=== PATIENT | female | born 1995 | race Caucasian/White ===

== ENCOUNTER 2016-08-13 19:53 | Emergency (ER) | payer MEDICAID ==
[~2016-08-13] VITALS: Ht 165.1 cm; Wt 77.0 kg
[2016-08-13 19:55] VITALS: BP 137/61; PULSE 73; RESP 16; TEMP 98.5; O2SAT 99
[2016-08-13] MEDS ORDERED: AMOX400S3 PO (20:02)
--- NOTE | 2016-08-13 20:14 | PD ---
Physical Exam Time Seen by Provider: 20:09 Narrative 20yo F c/o not being able to hear out of L ear x2days. Reports cold symptoms x 2 weeks. Also c/o L sided stabbing chest pain w/ coughing or deep breathing. Reports SOB. Patient seen in triage. VS reviewed. Awaiting bed placement. Data Data Last Documented VS Vital Signs Date Time Temp Pulse Resp B/P Pulse Ox O2 Delivery O2 Flow Rate FiO2 08/13/16 19:55 98.5 73 16 137/61 99 Room Air MDM Supervised Visit with GRAHAM: No Scripts No Active Prescriptions or Reported Meds Betty Mejia August 13, 2016 20:14
[2016-08-13] MEDS ORDERED: PRED-503 PO (20:57)
--- NOTE | 2016-08-13 20:57 | PD ---
HPI Chief Complaint: Cold / Flu Symptoms Time Seen by Provider: 20:53 Travel History International Travel<30 days: No Contact w/Intl Traveler<30days: No Traveled to known affect area: No History of Present Illness HPI 20-year-old white female presents to emergency Department with complaints of decreased hearing in her left ear and cough. She states that she's been sick now for nearly a week. Initially started off with runny nose, cough and congestion. She could not hear out of her right ear. She states that after about 3 or 4 days she could hear out of her right ear but then she could not hear out of her left ear. She says some pleuritic chest wall pain. In general malaise. She had some subjective fever initially but that did resolve. No nausea vomiting. No abdominal pain. No dysuria or frequency. Symptoms are moderate. She does not use Q-tips. PFSH Past Medical History Medical History: Denies Significant Hx Hx Anticoagulant Therapy: No Cardiovascular Problems: No Chemotherapy: No Cerebrovascular Accident: No Developmental Delay: No Diabetes: No Diminished Hearing: No Respiratory: No Immunizations Current: Yes Tetanus Vaccination: Unknown Influenza Vaccination: No ?: Not LMP: NOW : 1 Para: 1 Miscarriage: 0 : 0 Past Surgical History Surgical History: No Previous Surgery Social History Alcohol Use: No Tobacco Use: No Substance Use: No Allergies-Medications (Allergen,Severity, Reaction): Coded Allergies: No Known Allergies (Unverified , 08/13/16) Reported Meds & Prescriptions Reported Meds & Active Scripts Active No Active Prescriptions or Reported Medications Review of Systems Except as stated in HPI: all other systems reviewed are Neg Physical Exam Narrative GENERAL: Well-developed, well-nourished in no acute distress. Nontoxic appearing. HEAD: Normocephalic, atraumatic. EYES: Pupils equal round and reactive. Extraocular motions intact. No scleral icterus. No injection or drainage. ENT: TMs clear without erythema. The left TM is distended but clear. Poor Valsalva. The external auditory canals clear. Nose: clear . Posterior pharynx is pink and moist. No tonsillar edema or exudate. Uvula midline. Airway patent. NECK: Trachea midline.Supple, nontender, moves head freely. No central bony tenderness or spasm. CARDIOVASCULAR: Regular rate and rhythm without murmurs, gallops, or rubs. RESPIRATORY: Clear to auscultation. Breath sounds equal bilaterally. No wheezes , rales, or rhonchi. GASTROINTESTINAL: Abdomen soft, non-tender, nondistended. No hepato-splenomegaly , or palpable masses. No guarding. EXTREMITIES: No clubbing, cyanosis, or edema. No joint tenderness, effusion, or edema noted. BACK: Nontender without deformity or crepitance. No flank tenderness. Data Data Last Documented VS Vital Signs Date Time Temp Pulse Resp B/P Pulse Ox O2 Delivery O2 Flow Rate FiO2 08/13/16 20:10 16 08/13/16 19:55 98.5 73 137/61 99 Room Air Orders Electrocardiogram (08/13/16 20:18) MDM Medical Decision Making Medical Screen Exam Complete: Yes Emergency Medical Condition: Yes Medical Record Reviewed: Yes Interpretation(s) EKG: Sinus arrhythmia but no abnormal ST-T wave changes. Normal rate. Normal interval. Differential Diagnosis MDM: High Differential diagnoses: Pneumonia, bronchitis, URI, asthma, RAD, otitis media, serous otitis media Narrative Course EKG reveals sinus arrhythmia but no acute ST-T wave changes. Diagnosis Primary Impression: Eustachian tube dysfunction Qualified Code: H69.82 - Eustachian tube dysfunction, left Additional Impressions: Serous otitis media Qualified Code: H65.92 - Left serous otitis media, unspecified chronicity URI (upper respiratory infection) Qualified Code: J06.9 - Viral upper respiratory tract infection Patient Instructions: General Instructions Additional Instructions: Rest. Increase fluids. Chew gum. Sudafed for 2 weeks. Prednisone. Follow-up with a medical doctor in one week. Return to the ER for emergencies. Med/Other Pt SpecificInfo: Prescription(s) given Scripts No Active Prescriptions or Reported Meds Disposition: 01 DISCHARGE HOME Condition: Stable Ross Torres August 13, 2016 20:57
--- NOTE | 2016-08-14 07:27 | EKG ---
Date Performed: 08/13/2016 Time Performed: 20:18:15 PTAGE: 20 years EKG: Sinus rhythm WITH MARKED SINUS ARRHYTHMIA NO PREVIOUS TRACING DOCTOR: Armen Rousseau Interpretating Date/Time 08/14/2016 07:26:11
== END 2016-08-13 21:46 | disposition home or self-care (01) ==
LOC: NEPK 19:53
DX: H69.82 Other specified disorders of Eustachian tube, left ear (principal); H65.92 Unspecified nonsuppurative otitis media, left ear; J06.9 Acute upper respiratory infection, unspecified
CPT/HCPCS: 93005; 99283

== ENCOUNTER 2017-01-07 06:35 | Emergency (ER) | payer MEDICAID ==
[~2017-01-07] VITALS: Ht 165.1 cm; Wt 84.0 kg
[~2017-01-07 06:35] MED LIST: PRED-503 PO
[2017-01-07 06:38] VITALS: BP 124/73; PULSE 84; RESP 16; TEMP 98.1; O2SAT 100
[2017-01-07] MEDS ORDERED: SODIUM CHLOR 0.9% 1000 ML INJ 1,000 ML IV SCH (07:15)
[2017-01-07] MEDS ORDERED: KETOROLAC TROMETHAMINE 30 MG/ML (IVP) VIAL IVP ONE (07:15)
[2017-01-07] MEDS ORDERED: SODIUM CHLORIDE 0.9% FLUSH 10 ML FLUSH IV FLUSH PRN (07:15)
--- NOTE | 2017-01-07 07:22 | PD ---
HPI Chief Complaint: Pain: Acute or Chronic Time Seen by Provider: 07:15 Travel History International Travel<30 days: No Contact w/Intl Traveler<30days: No Traveled to known affect area: No History of Present Illness HPI 21-year-old female patient presents to the ER today for several days history of left leg. She currently measures at a 7 out of 10, describes as sharp and waxing and waning. She states that it worsens with movements. She denies any nausea, vomiting, fevers, urinary symptoms, or any other symptoms. She denies any previous issues with this. She does not know any injuries. Modifying Factors: Worse with movement Associated Signs & Symptoms: Left flank pains Risk Factors: None PFSH Past Medical History Medical History: Denies Significant Hx Hx Anticoagulant Therapy: No Cardiovascular Problems: No Chemotherapy: No Cerebrovascular Accident: No Developmental Delay: No Diabetes: No Diminished Hearing: No Respiratory: No Immunizations Current: Yes ?: Not LMP: 01/07/17 : 1 Para: 1 Miscarriage: 0 : 0 Past Surgical History Surgical History: No Previous Surgery Social History Alcohol Use: No Tobacco Use: No Substance Use: No Allergies-Medications (Allergen,Severity, Reaction): Coded Allergies: No Known Allergies (Unverified , 01/07/17) Reported Meds & Prescriptions Reported Meds & Active Scripts Active Deltasone (Prednisone) 20 Mg Tab 20 Mg PO BID Review of Systems Except as stated in HPI: all other systems reviewed are Neg Physical Exam Narrative GENERAL: Well-developed young white female patient currently mild distress. Awake and oriented 3. SKIN: Focused skin assessment warm/dry. HEAD: Atraumatic. Normocephalic. EYES: Pupils equal and round. No scleral icterus. No injection or drainage. ENT: No nasal bleeding or discharge. Mucous membranes pink and moist. NECK: Trachea midline. No JVD. CARDIOVASCULAR: Regular rate and rhythm. No murmur appreciated. RESPIRATORY: No accessory muscle use. Clear to auscultation. Breath sounds equal bilaterally. GASTROINTESTINAL: Abdomen soft, non-tender, nondistended. Hepatic and splenic margins not palpable. MUSCULOSKELETAL: No obvious deformities. No clubbing. No cyanosis. No edema. BACK: Left CVA tenderness. No rash. No point tenderness on palpation of the spine. NEUROLOGICAL: Awake and alert. No obvious cranial nerve deficits. Motor grossly within normal limits. Normal speech. PSYCHIATRIC: Appropriate mood and affect; insight and judgment normal. Data Data Last Documented VS Vital Signs Date Time Temp Pulse Resp B/P (MAP) Pulse Ox O2 Delivery O2 Flow Rate FiO2 01/07/17 07:29 Room Air 01/07/17 06:38 98.1 84 16 100 Orders Orders Complete Blood Count With Diff (01/07/17 07:15) Comprehensive Metabolic Panel (01/07/17 07:15) Lipase (01/07/17 07:15) Urinalysis - C+S If Indicated (01/07/17 07:15) Ct Abd/Pel W/O Iv Contrast (01/07/17 07:15) Iv Access Insert/Monitor (01/07/17 07:15) Ecg Monitoring (01/07/17 07:15) Oximetry (01/07/17 07:15) Sodium Chlor 0.9% 1000 Ml Inj (Ns 1000 M (01/07/17 07:15) Sodium Chloride 0.9% Flush (Ns Flush) (01/07/17 07:15) Ketorolac Inj (Toradol Inj) (01/07/17 07:15) Ed Discharge Order (01/07/17 09:14) Labs Laboratory Tests Test 01/07/17 07:20 01/07/17 07:30 White Blood Count 6.9 TH/MM3 Red Blood Count 4.61 MIL/MM3 Hemoglobin 13.3 GM/DL Hematocrit 39.2 % Mean Corpuscular Volume 85.1 FL Mean Corpuscular Hemoglobin 29.0 PG Mean Corpuscular Hemoglobin Concent 34.0 % Red Cell Distribution Width 14.1 % Platelet Count 270 TH/MM3 Mean Platelet Volume 8.1 FL Neutrophils (%) (Auto) 55.6 % Lymphocytes (%) (Auto) 33.7 % Monocytes (%) (Auto) 8.5 % Eosinophils (%) (Auto) 1.7 % Basophils (%) (Auto) 0.5 % Neutrophils # (Auto) 3.8 TH/MM3 Lymphocytes # (Auto) 2.3 TH/MM3 Monocytes # (Auto) 0.6 TH/MM3 Eosinophils # (Auto) 0.1 TH/MM3 Basophils # (Auto) 0.0 TH/MM3 CBC Comment DIFF FINAL Differential Comment Blood Urea Nitrogen 13 MG/DL Creatinine 0.64 MG/DL Random Glucose 91 MG/DL Total Protein 7.9 GM/DL Albumin 3.7 GM/DL Calcium Level 8.8 MG/DL Alkaline Phosphatase 78 U/L Aspartate Amino Transf (AST/SGOT) 9 U/L Alanine Aminotransferase (ALT/SGPT) 17 U/L Total Bilirubin 0.3 MG/DL Sodium Level 138 MEQ/L Potassium Level 4.0 MEQ/L Chloride Level 107 MEQ/L Carbon Dioxide Level 27.1 MEQ/L Anion Gap 4 MEQ/L Estimat Glomerular Filtration Rate 117 ML/MIN Lipase 77 U/L Urine Color LIGHT-YELLOW Urine Turbidity CLEAR Urine pH 5.5 Urine Specific [place] 1.007 Urine Protein NEG mg/dL Urine Glucose (UA) NEG mg/dL Urine Ketones NEG mg/dL Urine Occult Blood SMALL Urine Nitrite NEG Urine Bilirubin NEG Urine Urobilinogen LESS THAN 2.0 MG/DL Urine Leukocyte Esterase NEG Urine RBC 2 /hpf Urine WBC LESS THAN 1 /hpf Urine Mucus FEW /lpf Microscopic Urinalysis Comment CULT NOT INDICATED MDM Medical Decision Making Medical Screen Exam Complete: Yes Emergency Medical Condition: Yes Medical Record Reviewed: Yes Interpretation(s) Laboratory Tests Test 01/07/17 07:20 01/07/17 07:30 Monocytes (%) (Auto) 8.5 % (0.0-8.0) Aspartate Amino Transf (AST/SGOT) 9 U/L (15-37) Anion Gap 4 MEQ/L (5-15) Urine Occult Blood SMALL (NEG) Urine Mucus FEW /lpf (OCC) Last 24 hours Impressions Abdomen/Pelvis CT 01/07/17 0715 Signed Impressions: Service Date/Time: Saturday, January 07, 2017 08:08 - CONCLUSION: Normal examination. Tani Escobar Jr., MD Differential Diagnosis Left flank pains: Renal colic versus pyelonephritis versus muscular skeletal versus pancreatitis Narrative Course Abdomen is fairly benign and I do not suspect an acute intra-abdominal process. Lab work did not show any signs of significant leukocytosis, sepsis, metabolic issues, or UTI. CAT scan is unremarkable for any intracranial acute processes. Patient had been given IV fluids, Toradol in the ER and on reevaluation at 9:15 AM is fairly comfortable. My plan would be to release her with follow-up to primary care physician was to medic relief or pain. Return for worsening in symptoms as necessary. The plan has been discussed with her and she states understanding. Diagnosis Primary Impression: Left flank pain Med/Other Pt SpecificInfo: Prescription(s) given Scripts Ibuprofen (Motrin Ib) 200 Mg Tablet 600 MG PO QID Y for PAIN SCALE 1 TO 10, #20 Prov: Grayson Mancia MD 01/07/17 Cyclobenzaprine (Flexeril) 10 Mg Tab 10 MG PO TID for Muscle Spasm, #12 TAB 0 Refills Prov: Grayson Mancia MD 01/07/17 Disposition: 01 DISCHARGE HOME Condition: Stable Grayson Mancia MD Jan 07, 2017 07:22
[2017-01-07 07:51] LABS: AUTOMATED NEUTROPHIL # 3.8 TH/MM3 (1.8-7.7); BASOPHIL % 0.5 % (0.0-2.0); EOSINOPHIL # 0.1 TH/MM3 (0-0.4); EOSINOPHIL % 1.7 % (0.0-4.0); HEMATOCRIT 39.2 % (35.0-46.0); HEMOGLOBIN 13.3 GM/DL (11.6-15.3); LYMPH % 33.7 % (9.0-44.0); LYMPHOCYTE # 2.3 TH/MM3 (1.0-4.8); MEAN CELL VOLUME 85.1 FL (80.0-100.0); MEAN PLATELET VOLUME 8.1 FL (7.0-11.0); MONO % 8.5 % (0.0-8.0); MONOCYTE # 0.6 TH/MM3 (0-0.9); NEUT % 55.6 % (16.0-70.0); PLATELET COUNT 270 TH/MM3 (150-450); RED BLOOD COUNT 4.61 MIL/MM3 (4.00-5.30); RED CELL DISTRIBUTION WIDTH 14.1 % (11.6-17.2); WHITE BLOOD COUNT 6.9 TH/MM3 (4.0-11.0)
[2017-01-07 07:54] LABS: BILIRUBIN, URINE NEG (NEG); BLOOD, URINE SMALL (NEG); GLUCOSE,URINE NEG (NEG); KETONE, URINE NEG (NEG); MUCUS URINE FEW /lpf (OCC); NITRITE,URINE NEG (NEG); PH, URINE 5.5 (5.0-8.5); URINE COLOR LIGHT-YELLOW (YELLW/STRAW); URINE LEUKOCYTE ESTERASE NEG (NEG)
[2017-01-07 08:05] LABS: ALBUMIN 3.7 GM/DL (3.4-5.0); ALT (GPT) 17 U/L (10-53); AST (GOT) 9 U/L (15-37); BICARBONATE 27.1 MEQ/L (21.0-32.0); BLOOD UREA NITROGEN 13 MG/DL (7-18); CALCIUM 8.8 MG/DL (8.5-10.1); CHLORIDE 107 MEQ/L (98-107); CREATININE 0.64 MG/DL (0.50-1.00); GLOMERULAR FILTRATION RATE 117 ML/MIN (>89); GLUCOSE,RANDOM 91 MG/DL (74-106); LIPASE 77 U/L (73-393); SODIUM (NA) 138 MEQ/L (136-145)
[2017-01-07 08:07] LABS: ALKALINE PHOSPHATASE 78 U/L (45-117); TOTAL BILIRUBIN ADULT 0.3 MG/DL (0.2-1.0); TOTAL PROTEIN 7.9 GM/DL (6.4-8.2)
--- NOTE | 2017-01-07 09:09 | RADRPT ---
EXAM DATE/TIME: 01/07/2017 08:08 [facility] COMPARISON: No previous studies available for comparison. INDICATIONS : Left flank pain , evaluate for possible renal stone. ORAL CONTRAST: No oral contrast ingested. RADIATION DOSE: 8.53 CTDIvol (mGy) MEDICAL HISTORY : None SURGICAL HISTORY : None. ENCOUNTER: Initial ACUITY: 2 days PAIN SCALE: 5/10 LOCATION: Left flank TECHNIQUE: Volumetric scanning of the abdomen and pelvis was performed. Using automated exposure control and ad justment of the mA and/or kV according to patient size, radiation dose was kept as low as reasonably achievable to obtain optimal diagnostic quality images. DICOM format image data is available electro nically for review and comparison. FINDINGS: LOWER LUNGS: The visualized lower lungs are clear. LIVER: Homogeneous density without lesion. There is no dilation of the biliary tree. No calcified gallston es. SPLEEN: Normal size without lesion. PANCREAS: Within normal limits. KIDNEYS: Normal in size and shape. There is no mass, stone, or hydronephrosis. ADRENAL GLANDS: Within normal limits. VASCULAR: There is no aortic aneurysm. BOWEL/MESENTERY: The stomach, small bowel, and colon demonstrate no acute abnormality. There is no free intraperitone al air or fluid. ABDOMINAL WALL: Within normal limits. RETROPERITONEUM: There is no lymphadenopathy. BLADDER: No wall thickening or mass. REPRODUCTIVE: Within normal limits. INGUINAL: There is no lymphadenopathy or hernia. MUSCULOSKELETAL: Within normal limits for patient age. CONCLUSION: Normal examination. Tani Escobar Jr., MD on January 07, 2017 at 9:02 Board Certified Radiologist. This report was verified electronically.
[2017-01-07] MEDS ORDERED: IBUP-1129 PO (09:17)
[2017-01-07] MEDS ORDERED: CYCL1TAB29 PO (09:17)
[2017-01-07 09:27] VITALS: BP 122/84
== END 2017-01-07 09:48 | disposition home or self-care (01) ==
LOC: NEPC 06:35
DX: R10.9 Unspecified abdominal pain (principal); Z79.899 Other long term (current) drug therapy
CPT/HCPCS: 74176; 80053; 81001; 83690; 85025; 96374; 99285; J1885; J7030